=== PATIENT | male | born 1965 | race Caucasian/White ===

== ENCOUNTER 2018-01-23 15:07 | Emergency (ER) | payer MEDICAID ==
[~2018-01-23] VITALS: Ht 165.1 cm; Wt 99.8 kg
[2018-01-23 15:12] VITALS: Ht 165.1 cm; Wt 99.8 kg
[2018-01-23 16:30] VITALS: BP 132/84
== END 2018-01-23 16:20 | disposition home or self-care (01) ==
LOC: ED 15:07
DX: S86.812D Strain of other muscle(s) and tendon(s) at lower leg level, left leg, subsequent encounter (principal); X50.1XXD Overexertion from prolonged static or awkward postures, subsequent encounter